=== PATIENT | female | born 1960 | race Caucasian/White ===

== ENCOUNTER 2017-05-17 07:21 | Day surgery (SDC) | payer MEDICAID ==
[2017-05-16 09:17] VITALS: BMI 28.3
[~2017-05-17 07:21] MED LIST: LACTATED RINGERS 1,000 ML IV SCH; LIDOCAINE 1% 20 ML VIAL (10MG/ML) FOR IV START INTRADERMA PRN
[2017-05-17 07:35] VITALS: RESP 16; TEMP 98.6
[2017-05-17] MEDS ORDERED: PROPOFOL 10 MG/ML 20 ML VIAL IV ONE (07:44)
[2017-05-17] MEDS ORDERED: MIDAZOLAM 2 MG/2 ML VIAL ONE (07:44)
[2017-05-17] MEDS ORDERED: LIDOCAINE 1% INJ 10MG/ML (20 ML MDV) ONE (07:44)
--- NOTE | 2017-05-17 08:10 | P.PCN ---
Date of Procedure: 05/17/17 Procedure(s) Performed: BRIEF HISTORY: Patient is a 56-year-old pleasant white female, scheduled for an elective colonoscopy as a part of screening for colorectal neoplasia. She has a family history of colon cancer diagnosed in her maternal uncle is a 60 and family history of colon polyps. PROCEDURE PERFORMED: Colonoscopy with snare polypectomy PREOPERATIVE DIAGNOSIS: Screening for colon cancer. IV sedation per Anesthesia. PROCEDURE: After informed consent was obtained, the patient, was brought into the endoscopy unit. IV sedation was administered by Anesthesia under continuous monitoring. Digital rectal examination was normal. Initially the Olympus CF- 160 flexible video colonoscope was then inserted in the rectum, gradually advanced into the cecum without any difficulty. Careful examination was performed as the scope was gradually being withdrawn. Ileocecal valve and the appendiceal orifice were visualized and appeared normal. Prep was excellent. Mucosa of the cecum, ascending colon, transverse colon, descending colon, sigmoid colon, and rectum appeared normal. There was a 1 cm polyp in the recto sigmoid colon at 20 cm from the anal verge, status post polypectomy. Scattered sigmoid diverticulosis seen. Retroflexion was performed in the rectum and no lesions were seen. The patient tolerated the procedure well. IMPRESSION: 1 cm pedunculated sigmoid polyp status post polypectomy Scattered sigmoid diverticulosis RECOMMENDATIONS: Findings of this examination were discussed with the patient as well as her family. She was advised to follow with the biopsy results. If the biopsy shows a tubular adenoma, she can have a repeat colonoscopy in 3 years.
[2017-05-17 08:11] VITALS: PULSE 67
[2017-05-17 08:34] VITALS: BP 150/76
== END 2017-05-17 09:17 | disposition home or self-care (01) ==
LOC: ORWHC2ENDO 07:21
PROVIDERS: ATTEND Internal Medicine Gastroenterology
DX: Z12.11 Encounter for screening for malignant neoplasm of colon (principal); D12.5 Benign neoplasm of sigmoid colon; K57.30 Diverticulosis of large intestine without perforation or abscess without bleeding; I48.0 Paroxysmal atrial fibrillation; Z79.890 Hormone replacement therapy; Z79.899 Other long term (current) drug therapy; Z80.0 Family history of malignant neoplasm of digestive organs; Z83.71 Family history of colonic polyps
CPT/HCPCS: 45385; 88305; J2250; J2001; J2704

== ENCOUNTER → 2017-07-02 | Outpatient (CLI) | payer MEDICAID ==
--- NOTE | 2017-07-03 08:53 | MR ---
EXAMINATION TYPE: MR knee LT wo con DATE OF EXAM: 07/02/2017 COMPARISON: Plain film dated 07/02/2017 HISTORY: Left Knee pain with Swelling x1 month TECHNIQUE: Multiplanar, multisequence imaging of the left knee is performed without IV contrast. FINDINGS: MEDIAL MENISCUS: Linear increased signal present at the posterior horn of the medial meniscus thought to extend to the articular surface. LATERAL MENISCUS: Anterior and posterior horns are intact without tear. CRUCIATE LIGAMENTS: The anterior and posterior cruciate ligaments are intact and unremarkable. COLLATERAL LIGAMENTS: The medial collateral ligament and lateral collateral ligament complex are inta ct and unremarkable. EXTENSOR MECHANISM: Visualized quadriceps and patellar tendons are intact. EFFUSION: Small suprapatellar joint effusion noted. POPLITEAL CYST: No popliteal/dumont cyst. TRICOMPARTMENT SPACES: Maintained medially and laterally, some joint space loss present at the patell ofemoral joint CARTILAGE: Grade III chondromalacia to grade 4 present posterior patella, grade III chondromalacia me dial femoral condyle. BONE MARROW SIGNAL: As described OTHER: Subcutaneous edema is noted. There is some increased signal at the level of the pes anserine complex at the level of the proximal tibia near its insertion, some local reactive marrow edema is pr esent at the level of the proximal tibia, difficult to exclude a possible partial tear or tendinosis. . IMPRESSION: Tendinosis or possible arterial tear at the insertion of the pes anserine complex. Suspect tear of th e posterior horn the medial meniscus. Osteoarthritis. Additional findings above.
== END | disposition home or self-care (01) ==
LOC: RADMRIMAIN 14:47
PROVIDERS: ATTEND Orthopaedic Surgery
DX: M25.562 Pain in left knee (principal)

== ENCOUNTER → 2017-07-08 | Outpatient (CLI) | payer MEDICAID ==
--- NOTE | 2017-07-08 09:08 | BD ---
EXAMINATION TYPE: MG DEXA axial skeleton. DATE OF EXAM: 07/08/2017 COMPARISON: 11.29.2014 DEXA bone scan CLINICAL HISTORY: 56 yr OLD FEMALE: ICD-10 CODE: M89.9 KNOWN OSTEOPENIA Height: 65 Weight: 184 FRAX RISK QUESTIONS: Alcohol (3 or more units per day): NO Family History (Parent hip fracture): NO Glucocorticoids (More than 3mos): NO (Ex: prednisone, prednisolone, methylprednisolone, dexamethasone, and hydrocortisone). History of Fracture in Adulthood: NO Secondary Osteoporosis: NO 1. Type 1 Diabetes: NO 2. Hyperthyroidism: NO 3. Menopause before 45: NO 4. Malnutrition: NO 5. Chronic liver disease: NO Rheumatoid Arthritis: NO Current Tobacco Use: NO RISK FACTORS HISTORY OF: Family History of Osteoporosis: YES, HER MOTHER, NO FX Active: YES Diet low in dairy products/other sources of calcium: NO Postmenopausal woman: YES AT AGE 52 Take estrogen and/or progesterone medications: ISAIAH-PRO How lon.5YRS Hyperparathyroidism: NO Adrenal Insufficiency: NO MEDICATIONS: Additional Medications: CLONIDINE, PRISTIQUE, Additional History: NOTHING TO NOTE EXAM MEASUREMENTS: Bone mineral densitometry was performed using the [employer] System. Bone mineral density as measured about the Lumbar spine is: ----- L1-L4(G/cm2): 0.992 T Score Values are as follows: ----- L1: -1.3 ----- L2: -2.7 ----- L3: -1.1 ----- L4: -1.4 ----- L1-L4: -1.6 Bone mineral density has: Decreased -1.9% since study of: 11.29.2014 Bone mineral density about the R hip (g/cm2): 0.996 Bone mineral density about the L hip (g/cm2): 0.975 T Score values are as follows: -----R Neck: -0.7 -----L Neck: -0.9 -----R Total: -0.1 -----L Total: -0.3 Bone mineral density has: Increased 5.0% since study of: 11.29.2014 FRAX: THERE IS A 5.4% CHANCE OF A MAJOR OSTEOPOROTIC FX AND A 0.2% OF HIP FX....PROBABILITY OF FX IN 10 YRS TIME IMPRESSION: Osteopenia (T Score between -2.5 and -1 as noted by T score values persists in the low back. There re main slightly increased risk of fracture and the patient may be considered for treatment. Re-Screen 2-5 years. NOTE: T-SCORE=SD OF THE YOUNG ADULT MEAN.
--- NOTE | 2017-07-09 08:02 | MM ---
Reason for exam: screening (asymptomatic). Last mammogram was performed 1 year and 4 months ago. History: Patient is postmenopausal. Cyst aspiration of the right breast. Taking estrogen for 1 year. Taking progesterone for 1 year. Physical Findings: A clinical breast exam by your physician is recommended on an annual basis and results should be correlated with mammographic findings. MG 3D Screening Mammo W/Cad Bilateral CC and MLO view(s) were taken. Prior study comparison: February 24, 2016, bilateral MG 3d screening mammo w/cad. November 29, 2014, bilateral MG screening mammo w CAD. The breast tissue is heterogeneously dense. This may lower the sensitivity of mammography. There is chronic nodularity bilaterally. There is no dominant lesion. No significant changes when compared with prior studies. ASSESSMENT: Benign, BI-RAD 2 RECOMMENDATION: Routine screening mammogram of both breasts in 1 year.
== END | disposition home or self-care (01) ==
LOC: RADMAMWWP 07:06
PROVIDERS: ATTEND Obstetrics & Gynecology
DX: Z12.31 Encounter for screening mammogram for malignant neoplasm of breast (principal); M85.88 Other specified disorders of bone density and structure, other site
CPT/HCPCS: 77063; 77067; 77080

== ENCOUNTER → 2017-07-31 | Outpatient (CLI) | payer MEDICAID ==
[2017-07-31 10:39] LABS: Basophils % (A) 1 %; Eosinophils # (A) 0.1 k/uL (0-0.7); Eosinophils % (A) 2 %; HCT 40.9 % (34.0-46.0); HGB 13.7 gm/dL (11.4-16.0); Lymphocytes # (A) 1.1 k/uL (1.0-4.8); Lymphocytes % (A) 22 %; MCH 29.9 pg (25.0-35.0); MCHC 33.4 g/dL (31.0-37.0); MCV 89.3 fL (80.0-100.0); Mean Platelet Volume 7.7; Monocytes # (A) 0.2 k/uL (0-1.0); Monocytes % (A) 4 %; Neutrophils # (A) 3.5 k/uL (1.3-7.7); Neutrophils % (A) 70 %; Platelet Count 235 k/uL (150-450); Poikilocytosis Slight; RBC 4.57 m/uL (3.80-5.40); RDW 15.3 % (11.5-15.5)
[2017-07-31 10:51] LABS: Potassium 4.1 mmol/L (3.5-5.1)
== END | disposition home or self-care (01) ==
LOC: LABPAT 10:14
PROVIDERS: ATTEND Orthopaedic Surgery
DX: Z01.812 Encounter for preprocedural laboratory examination (principal); M23.92 Unspecified internal derangement of left knee
CPT/HCPCS: 36415; 80051; 85025

== ENCOUNTER 2017-08-01 08:25 | Day surgery (SDC) | payer MEDICAID ==
[2017-07-29 12:28] VITALS: BMI 29.1
--- NOTE | 2017-07-31 20:57 | HP ---
HISTORY AND PHYSICAL DATE OF SURGERY: 08/01/2017 Justine Guevara is a 57-year-old patient seen with progressive left knee pain. Treatment options were discussed. She elected to proceed with left knee arthroscopy. Consent was obtained. PAST MEDICAL HISTORY: Noncontributory. PAST SURGICAL HISTORY: Cholecystectomy. DAILY MEDICATIONS: Clonidine. ALLERGIES: NONE. SOCIAL HISTORY: Patient denies tobacco use. PHYSICAL EVALUATION OF THE LEFT KNEE: Range of motion zero to 130 degrees. Mild effusion. Tenderness along the medial joint line. Positive medial Amado's. Crepitus with patellofemoral joint range of motion. Ligaments stable. Hip rotation without pain. Distal neurovascular examination. RADIOGRAPHS: Left knee radiographs revealed moderate osteoarthritis. An MRI left knee revealed chondromalacia, small joint effusion, medial meniscal tear. IMPRESSION: Internal derangement of the left knee with meniscal tear. PLAN: Left knee arthroscopy with partial meniscectomy and debridement. MMODL / IJN: [id number] /
[~2017-08-01 08:25] MED LIST changes: -LIDOCAINE 1% 20 ML VIAL (10MG/ML) FOR IV START INTRADERMA PRN; +MORPHINE SULFATE 4 MG/ML SYRINGE IV PRN; +ceFAZolin IN SWFI 2 GM/20 ML SYRINGE IVP ONE
[2017-08-01] MEDS ORDERED: LIDOCAINE 1% 20 ML VIAL (10MG/ML) FOR IV START INTRADERMA ONE (08:57)
[2017-08-01] MEDS ORDERED: ONDANSETRON 4 MG/2 ML VIAL IVP ONE (09:09)
[2017-08-01] MEDS ORDERED: fentaNYL (PF) 50 MCG/ML 2 ML AMP ONE (09:27)
[2017-08-01] MEDS ORDERED: PROPOFOL 10 MG/ML 20 ML VIAL IV ONE ×2 (09:27)
[2017-08-01] MEDS ORDERED: MIDAZOLAM 2 MG/2 ML VIAL ONE (09:27)
[2017-08-01] MEDS ORDERED: LIDOCAINE 1% INJ 10MG/ML (20 ML MDV) ONE (09:27)
[2017-08-01] MEDS ORDERED: KETOROLAC 30 MG/ML 1 ML VIAL ONE (09:27)
[2017-08-01] MEDS ORDERED: BUPIVACAINE (PF) 0.25% 30 ML VIAL SQ ONE (10:04)
[2017-08-01 10:18] VITALS: TEMP 97.1
--- NOTE | 2017-08-01 10:21 | P.OP ---
Date of Procedure: 08/01/17 Preoperative Diagnosis: Internal derangement left knee Postoperative Diagnosis: 1. Medial and lateral meniscal tears left knee 2. Grade 2/3 chondromalacia medial femoral condyle left knee 3. Grade 2/3 chondromalacia patella left knee 4. Reactive synovitis medial and suprapatellar compartments left knee Procedure(s) Performed: 1. Arthroscopic partial medial and lateral meniscectomy left knee 2. Arthroscopic chondroplasty medial femoral condyle left knee 3. Arthroscopic chondroplasty patella left knee 4. Arthroscopic partial synovectomy medial and suprapatellar compartments left knee Anesthesia: [place], local Surgeon: Ge Neves Estimated Blood Loss (ml): 8 Pathology: none sent Condition: stable Disposition: PACU Indications for Procedure: 57-year-old patient seen with progressive left knee pain. After having treatment options discussed, she elected to proceed with arthroscopy. Operative Findings: see description of procedure Description of Procedure: Patient was taken to the operative suite. Patient underwent a general anesthetic by the department of anesthesia. Patient was given preoperative antibiotics. The left lower extremity was placed in a well-padded arthroscopic leg chau. The left leg was prepped and draped in the normal sterile orthopedic fashion. A lateral parapatellar and suprapatellar incision was made. Trochars were inserted. Arthroscopy was initiated. Suprapatellar pouch revealed diffuse thick reactive synovitis. The patellofemoral joint appeared to articulate congruently. There was grade 2/3 chondromalacia patella left knee with osteochondral tears. The scope was guided into the medial gutter. Loose bodies or plica were identified. The scope was then guided into the medial compartment. A medial parapatellar incision was made. Trocar inserted followed by probe. There was a complex tear posterior horn medial meniscus. There were grade 2-3 chondromalacia changes of the medial femoral condyle with peripheral osteochondral tears present. There was reactive synovitis anteriorly. I performed a partial medial meniscectomy down to stable tissue. I performed a chondroplasty of the medial femoral condyle down to stable tissue. I performed a partial synovectomy. The residual meniscus was stable. The residual osteochondral surface of the medial femoral condyle was stable. There was good decompression of the reactive synovitis. Scope and probe were then guided into the intercondylar notch. Cruciates were identified, probed and found to be stable. The scope and probe were then guided into lateral compartment. Some superficial tearing of the midbody lateral meniscus. Grade 1 chondromalacia changes of the tibial plateau. No reactive synovitis. I performed a partial lateral meniscectomy down to stable tissue. The residual meniscus was stable. The scope was in guided back into the suprapatellar compartment. I introduced a motorized shaver into the super patellar compartment. I debrided some piecemeal fragments of meniscus I encountered. I performed a chondroplasty of the patella down to stable tissue. I performed a partial synovectomy. The residual osteochondral surface of the patella was stable. I took one more look on the entire knee, no residual debris. Instruments were now removed from the joint. The joint was infiltrated with .25 % Marcaine. Steri-Strips were applied to the portal sites. Sterile dressings were applied. The patient was placed into a ELENA hose. No tourniquet was utilized. The patient was awakened, transferred to a bed and taken to recovery stable satisfactory condition.
[2017-08-01 10:23] VITALS: RESP 16
[2017-08-01] MEDS: fentaNYL (PF) 50 MCG/ML 2 ML AMP IVP ONE ×2 (10:30→10:42)
[2017-08-01] MEDS ORDERED: HYDROcodone/APAP 5-325MG 1 EACH TAB PO ONE (12:00)
[2017-08-01 12:14] VITALS: BP 134/63; PULSE 83
== END 2017-08-01 12:44 | disposition home or self-care (01) ==
LOC: OR 08:25
PROVIDERS: ATTEND Orthopaedic Surgery
DX: S83.242A Other tear of medial meniscus, current injury, left knee, initial encounter (principal); S83.282A Other tear of lateral meniscus, current injury, left knee, initial encounter; X58.XXXA Exposure to other specified factors, initial encounter; M22.42 Chondromalacia patellae, left knee; M65.862 Other synovitis and tenosynovitis, left lower leg; I10 Essential (primary) hypertension; I48.91 Unspecified atrial fibrillation; Z79.899 Other long term (current) drug therapy
CPT/HCPCS: 29880; J2250; J2405; J2001; J3010; J1885; J2704; J0690

== ENCOUNTER → 2019-01-19 | Outpatient (CLI) | payer MEDICAID ==
--- NOTE | 2019-01-19 22:55 | MR ---
EXAMINATION TYPE: MR knee RT wo con DATE OF EXAM: 01/19/2019 COMPARISON: Outside knee x-ray November 18, 2018 HISTORY: Pain in right knee per order. Additional symptoms of locking and swelling for 1 year per pat ient. TECHNIQUE: Multiplanar, multisequence images of the knee is performed without IV contrast. FINDINGS: MEDIAL MENISCUS: Anterior horn is intact without tear. Oblique signal posterior horn extends to infer ior articular surface sagittal image 8 LATERAL MENISCUS: Anterior and posterior horns are intact without tear. CRUCIATE LIGAMENTS: The anterior and posterior cruciate ligaments are intact and unremarkable. COLLATERAL LIGAMENTS: The medial collateral ligament and lateral collateral ligament complex are inta ct. Increased fluid signal surrounds both the medial collateral ligament and lateral collateral ligam ent complex. EXTENSOR MECHANISM: Visualized quadriceps and patellar tendons are intact. EFFUSION: There is a large suprapatellar joint effusion. POPLITEAL CYST: Ill-defined fluid at level of popliteal fossa noted. TRICOMPARTMENT SPACES: Moderate narrowing medial tibiofemoral and patellofemoral compartments with mi ld spurring. CARTILAGE: Significant chondromalacia patella with near full-thickness and full-thickness loss along inferior half of posterior patellar pole. Thinning of articular cartilage medial tibiofemoral compart ment. BONE MARROW SIGNAL: Heterogeneity consistent with red marrow reconversion distal femoral metadiaphysi s. OTHER: Increased fluid signal superficial infrapatellar level noted. Correlate for bursitis. IMPRESSION: 1. Full-thickness tear posterior horn of medial meniscus. 2. Mild MCL and lateral collateral ligament complex sprain injuries. 3. Large suprapatellar joint effusion. 4. Suspect leaking Damon's cyst. 5. Moderate degenerative changes patellofemoral and medial tibiofemoral compartments.
== END | disposition home or self-care (01) ==
LOC: RADMRIMAIN 06:47
PROVIDERS: ATTEND Orthopaedic Surgery
DX: S83.241A Other tear of medial meniscus, current injury, right knee, initial encounter (principal); S83.421A Sprain of lateral collateral ligament of right knee, initial encounter; S83.411A Sprain of medial collateral ligament of right knee, initial encounter; M17.11 Unilateral primary osteoarthritis, right knee

== ENCOUNTER → 2019-03-09 | Outpatient (CLI) | payer MEDICAID ==
[2019-03-09 12:07] LABS: Potassium 4.8 mmol/L (3.5-5.1)
[2019-03-09 14:04] LABS: Basophils % (A) 1 %; Eosinophils # (A) 0.1 k/uL (0-0.7); Eosinophils % (A) 2 %; HCT 38.7 % (34.0-46.0); HGB 13.2 gm/dL (11.4-16.0); Lymphocytes # (A) 1.5 k/uL (1.0-4.8); Lymphocytes % (A) 25 %; MCH 30.5 pg (25.0-35.0); MCV 89.8 fL (80.0-100.0); Monocytes # (A) 0.3 k/uL (0-1.0); Monocytes % (A) 4 %; Neutrophils # (A) 4.2 k/uL (1.3-7.7); Neutrophils % (A) 67 %; Platelet Count 227 k/uL (150-450); Poikilocytosis Slight; RBC 4.32 m/uL (3.80-5.40); RDW 15.5 % (11.5-15.5); WBC 6.2 k/uL (3.8-10.6)
== END ==
LOC: LABPAT 10:10
PROVIDERS: ATTEND Orthopaedic Surgery
DX: Z01.818 Encounter for other preprocedural examination (principal); Z01.812 Encounter for preprocedural laboratory examination; M23.91 Unspecified internal derangement of right knee
CPT/HCPCS: 36415; 80051; 85025; 93005

== ENCOUNTER 2019-03-11 08:55 | Day surgery (SDC) | payer MEDICAID ==
[2019-03-10 09:17] VITALS: BMI 29.7
--- NOTE | 2019-03-10 09:56 | HP ---
HISTORY AND PHYSICAL DATE OF SURGERY: 03/11/2019 Sandrita Guevara is a 58-year-old patient seen with progressive right knee pain. We discussed options for treatment. She elected to proceed with right knee arthroscopy. Consent regarding the procedure was obtained. PAST MEDICAL HISTORY: Noncontributory. PAST SURGICAL HISTORY: Cholecystectomy, left knee arthroscopy. MEDICATIONS: Prempro. ALLERGIES: None. SOCIAL HISTORY: She denies tobacco use. PHYSICAL EVALUATION OF THE RIGHT KNEE: Range of motion 0 to 130. Moderate effusion. Tenderness medial joint line. Positive medial Amado's. Ligaments stable. Hip rotation without pain. Distal neurovascular exam intact. RADIOGRAPHS OF THE RIGHT KNEE: Reveal moderate osteoarthritic changes. An MRI of the right knee revealed medial meniscal tear, osteoarthritic changes. IMPRESSION: Internal derangement, right knee with medial meniscal tear. PLAN: Right knee arthroscopy with partial meniscectomy and debridement. MMODL / IJN: [id number] /
[~2019-03-11 08:55] MED LIST changes: +DEXAMETHASONE SOD PHOSPHATE 10 MG/ML 1 ML VIAL IV ONE; +KETOROLAC 30 MG/ML 1 ML VIAL IVP SCH; -LACTATED RINGERS 1,000 ML IV SCH; +LIDOCAINE 1% 20 ML VIAL (10MG/ML) FOR IV START INTRADERMA PRN; -MORPHINE SULFATE 4 MG/ML SYRINGE IV PRN; +ONDANSETRON 4 MG/2 ML VIAL IVP ONE; +ONDANSETRON 4 MG/2 ML VIAL IVP PRN; +SCOPOLAMINE 1.5MG/72HR PATCH TRANSDERM ONE; -ceFAZolin IN SWFI 2 GM/20 ML SYRINGE IVP ONE
[2019-03-11] MEDS: LACTATED RINGERS 1,000 ML IV SCH ×3 (09:03→11:40)
[2019-03-11 09:09] VITALS: RESP 16; TEMP 97.2
[2019-03-11] MEDS ORDERED: MIDAZOLAM 2 MG/2 ML VIAL ONE (09:44)
[2019-03-11] MEDS ORDERED: hydrALAZINE HCL 20 MG/ML 1 ML VIAL ONE (09:44)
[2019-03-11] MEDS ORDERED: PROPOFOL 10 MG/ML 20 ML VIAL IV ONE (09:44)
[2019-03-11] MEDS ORDERED: LIDOCAINE 1% INJ 10MG/ML (20 ML MDV) ONE (09:44)
[2019-03-11] MEDS ORDERED: fentaNYL (PF) 50 MCG/ML 2 ML AMP ONE (09:44)
[2019-03-11] MEDS ORDERED: KETOROLAC 30 MG/ML 1 ML VIAL ONE (09:44)
[2019-03-11] MEDS ORDERED: HYDROmorphone (PF) 1 MG/ML ONE (09:44)
[2019-03-11] MEDS ORDERED: SUCCINYLCHOLINE CHLORIDE 100 MG/5 ML SYR IV ONE (09:44)
[2019-03-11] MEDS ORDERED: BUPIVACAINE (PF) 0.25% 30 ML VIAL SQ ONE (10:09)
--- NOTE | 2019-03-11 10:36 | P.OP ---
Date of Procedure: 03/11/19 Preoperative Diagnosis: Internal derangement right knee Postoperative Diagnosis: 1. Tear medial meniscus right knee 2. Grade 2/3 chondromalacia medial femoral condyle right knee 3. Grade 2/3 chondromalacia patella right knee 4. Reactive synovitis medial, lateral and suprapatellar compartments right knee Procedure(s) Performed: 1. Arthroscopic partial medial meniscectomy right knee 2. Arthroscopic chondroplasty medial femoral condyle right knee 3. Arthroscopic chondroplasty patella right knee 4. Arthroscopic partial synovectomy medial, lateral and suprapatellar compartments right knee Anesthesia: [place], local Surgeon: Ge Neves Estimated Blood Loss (ml): 5 Pathology: none sent Condition: stable Disposition: PACU Indications for Procedure: 58-year-old patient seen with progressive right knee pain. After having treatment options discussed, she elected to proceed with arthroscopy. Operative Findings: See description of procedure Description of Procedure: Patient was taken to the operative suite. Patient underwent a general anesthetic by the department of anesthesia. Patient was given preoperative antibiotics. The right lower extremity was placed in a well-padded arthroscopic leg chau. The right leg was prepped and draped in the normal sterile orthopedic fashion. A lateral parapatellar and suprapatellar incision was made. Trochars were inserted. Arthroscopy was initiated. Suprapatellar pouch revealed diffuse thick reactive synovitis. The patellofemoral joint appeared to articulate congruently. There was grade 2/3 chondromalacia of the patella with some small osteochondral tears present. The scope was guided into the medial gutter. No loose bodies or plica were identified. The scope was then guided into the medial compartment. A medial parapatellar incision was made. Trocar inserted followed by probe. There was a complex tear involving the mid body and posterior horn medial meniscus. There were grade 2/3 chondromalacia changes of the medial femoral condyle with some osteochondral tears present. There was reactive synovitis anteriorly. I performed a partial medial meniscectomy getting down to stable tissue. I performed a chondroplasty of the medial femoral condyle getting down to stable osteochondral tissue. I performed a partial synovectomy decompressing the reactive synovitis anteriorly. The residual meniscus was probed and found to be stable. The residual osteochondral surface was stable. There was good decompression with synovitis. Scope and probe were then guided into the intercondylar notch. Cruciates were identified, probed and found to be stable. The scope and probe were then guided into lateral compartment. There was some mild fraying noted of the midbody lateral meniscus. There was no significant chondromalacia involving lateral compartment. There was some reactive synovitis anteriorly. I debrided that meniscal fraying with a motorized shaver and I performed a partial synovectomy decompressing reactive synovitis anteriorly. There was good decompression of the synovitis. The scope was in guided back into the suprapatellar compartment. I introduced a motorized shaver into the suprapatellar compartment. I debrided piecemeal fragments of meniscus I encountered. I performed a chondroplasty of the patella getting down to stable osteochondral tissue. I performed a partial synovectomy decompressing the reactive synovitis in suprapatellar compartment. The residual osteochondral surface of patella was stable. There was good decompression of the synovitis. I took one more look around the entire knee, no residual debris. Instruments were now removed from the joint. The joint was infiltrated with .25% Marcaine. Steri-Strips were applied to the portal sites. Sterile dressings were applied. The patient was placed into a ELENA hose. No tourniquet was utilized. The patient was awakened, transferred to a bed and taken to recovery stable satisfactory condition.
[2019-03-11] MEDS: HYDROmorphone 0.5 MG/0.5 ML SYRINGE IVP PRN ×2 (11:20→11:25)
[2019-03-11] MEDS ORDERED: HYDROcodone/APAP 5-325MG 1 EACH TAB PO ONE (12:43)
[2019-03-11 13:06] VITALS: BP 127/72; PULSE 96
== END 2019-03-11 13:24 | disposition home or self-care (01) ==
LOC: OR 08:55
PROVIDERS: ATTEND Orthopaedic Surgery
DX: S83.231A Complex tear of medial meniscus, current injury, right knee, initial encounter (principal); M22.41 Chondromalacia patellae, right knee; M65.861 Other synovitis and tenosynovitis, right lower leg; S83.281A Other tear of lateral meniscus, current injury, right knee, initial encounter; M17.11 Unilateral primary osteoarthritis, right knee; R94.31 Abnormal electrocardiogram [ECG] [EKG]; I10 Essential (primary) hypertension; Z79.818 Long term (current) use of other agents affecting estrogen receptors and estrogen levels; Z79.899 Other long term (current) drug therapy; Z87.891 Personal history of nicotine dependence; Z90.49 Acquired absence of other specified parts of digestive tract; Z86.79 Personal history of other diseases of the circulatory system; Z98.890 Other specified postprocedural states; X58.XXXA Exposure to other specified factors, initial encounter
CPT/HCPCS: 29881; 29876; J2250; J0360; J1100; J0690; J2405; J2001; J3010; J1885; J1170 ×2; J0330; J2704

== ENCOUNTER → 2020-02-24 | Outpatient (CLI) | payer MEDICAID ==
[2020-02-24 11:45] LABS: Basophils % (A) 1 %; Eosinophils # (A) 0.1 k/uL (0-0.7); Eosinophils % (A) 3 %; HCT 39.9 % (34.0-46.0); HGB 13.5 gm/dL (11.4-16.0); Lymphocytes # (A) 1.3 k/uL (1.0-4.8); Lymphocytes % (A) 25 %; MCH 30.3 pg (25.0-35.0); MCHC 33.8 g/dL (31.0-37.0); MCV 89.5 fL (80.0-100.0); Monocytes # (A) 0.2 k/uL (0-1.0); Monocytes % (A) 4 %; Neutrophils # (A) 3.4 k/uL (1.3-7.7); Neutrophils % (A) 66 %; Platelet Count 194 k/uL (150-450); Poikilocytosis Slight; RBC 4.46 m/uL (3.80-5.40); RDW 15.2 % (11.5-15.5); WBC 5.2 k/uL (3.8-10.6)
[2020-02-24 18:33] LABS: African American GFR (CKD) 117.3 (60.0-200.0); Albumin 4.4 g/dL (3.80-4.90); Albumin/Globulin Ratio 3.14 (1.60-3.17); Anion Gap 13.4 mmol/L (4.00-12.00); Calcium 9.1 mg/dL (8.7-10.3); Carbon Dioxide 23.6 mmol/L (21.6-31.8); Chol/HDL Ratio 3.74; Globulin 1.4 g/dL (1.6-3.3); LDL Cholesterol,Calculated 143.2 mg/dL (0.0-131.0); Non-African American GFR(CKD) 101.2 (60.0-200.0); Potassium 4.8 mmol/L (3.5-5.5); Total Bilirubin 1.1 mg/dL (0.2-1.2); Total Protein 5.8 g/dL (6.2-8.2); VLDL Calculation 26.8 mg/dL (5.00-40.00)
== END | disposition home or self-care (01) ==
LOC: LABWHC1 08:52
PROVIDERS: ATTEND Family Medicine
DX: Z13.220 Encounter for screening for lipoid disorders (principal); Z13.29 Encounter for screening for other suspected endocrine disorder; R07.9 Chest pain, unspecified
CPT/HCPCS: 36415; 80053; 80061; 82306; 84443; 85025

== ENCOUNTER → 2020-09-09 | Day surgery (SDC) | payer MEDICAID ==
[2020-09-08 12:39] VITALS: BMI 32.4
[~2020-09-09] MED LIST changes: -DEXAMETHASONE SOD PHOSPHATE 10 MG/ML 1 ML VIAL IV ONE; -KETOROLAC 30 MG/ML 1 ML VIAL IVP SCH; +LACTATED RINGERS 1,000 ML IV SCH; +LIDOCAINE 1% (10MG/ML) FOR IV START SQ ONE; -LIDOCAINE 1% 20 ML VIAL (10MG/ML) FOR IV START INTRADERMA PRN; +MIDAZOLAM 2 MG/2 ML VIAL ONE; -ONDANSETRON 4 MG/2 ML VIAL IVP PRN; +ONDANSETRON 4 MG/2 ML VIAL ONE; +PROPOFOL 10 MG/ML 20 ML VIAL IV ONE; -SCOPOLAMINE 1.5MG/72HR PATCH TRANSDERM ONE; +fentaNYL (PF) 50 MCG/ML 2 ML AMP ONE
[2020-09-09 08:54] VITALS: RESP 16; TEMP 98
--- NOTE | 2020-09-09 09:37 | P.PCN ---
Date of Procedure: 09/09/20 Procedure(s) Performed: BRIEF HISTORY: Patient is a [age]-year-old pleasant white female scheduled for an elective colonoscopy as a part of evaluation of prior history of colon polyps. Last colonoscopy was 3 years ago and was noted to have an adenoma. PROCEDURE PERFORMED: Colonoscopy. PREOPERATIVE DIAGNOSIS: History of colon polyps. IV sedation per Anesthesia. PROCEDURE: After informed consent was obtained, the patient, was brought into the endoscopy unit. IV sedation was administered by Anesthesia under continuous monitoring. Digital rectal examination was normal. Initially the Olympus CF-160 flexible video colonoscope was then inserted in the rectum, gradually advanced into the cecum without any difficulty. Careful examination was performed as the scope was gradually being withdrawn. Ileocecal valve and the appendiceal orifice were visualized and appeared normal. Prep was excellent. Mucosa of the cecum, ascending colon, transverse colon, descending colon, sigmoid colon, and rectum appeared normal. Scattered diverticulosis seen. Retroflexion was performed in the rectum and no lesions were seen. The patient tolerated the procedure well. IMPRESSION: Normal-appearing colon from rectum to cecum with no evidence of colorectal neoplasia . Scattered diverticulosis. RECOMMENDATIONS: Findings of this examination were discussed with the patient as well as her family. She was advised to have a repeat surveillance colonoscopy in 5 years from now because of the prior history of colon polyps.
[2020-09-09 10:27] VITALS: BP 137/73; PULSE 72
== END ==
LOC: ORWHC2ENDO 08:36
PROVIDERS: ATTEND Internal Medicine Gastroenterology
DX: Z12.11 Encounter for screening for malignant neoplasm of colon (principal); K57.30 Diverticulosis of large intestine without perforation or abscess without bleeding; Z86.010 Personal history of colon polyps; Z79.899 Other long term (current) drug therapy; I10 Essential (primary) hypertension; Z79.1 Long term (current) use of non-steroidal anti-inflammatories (NSAID)
CPT/HCPCS: J2250; J2405; J3010; J2704; G0105; 45385

== ENCOUNTER → 2021-06-05 | Outpatient (CLI) | payer MEDICAID, OTHER | END | disposition home or self-care (01) | LOC: LABWHC1 16:04 | PROVIDERS: ATTEND Emergency Medicine | DX: U07.1 COVID-19 (principal) | CPT/HCPCS: 87635 ==

== ENCOUNTER 2021-06-30 09:10 | Emergency (ER) | payer OTHER, MEDICAID ==
[2021-06-30] MEDS ORDERED: IBUPROFEN 600 MG TAB PO STA (09:11)
[2021-06-30 09:24] VITALS: TEMP 97.7
--- NOTE | 2021-06-30 09:47 | XR ---
Cervical spine HISTORY: Trauma and pain 5 views of cervical spine No comparisons Cervical vertebral bodies show preserved height. Bone mineralization may be slightly reduced. Minimal retrolisthesis grade 1 C3-4, C4-5. There is facet arthropathy change. Loss of disc height is present at C5-6, C6-7 and C4-5 with associated spondylosis. Prevertebral soft tissues are normal. Oblique im ages show some foraminal encroachment on the left at C4-5 and possibly on the right although obliquit y is somewhat limited on the right. IMPRESSION: Degenerative disc disease and facet arthropathy. No acute fracture or subluxation is evid ent.
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
[2021-06-30 10:00] VITALS: BP 124/73; PULSE 77; RESP 20
== END 2021-06-30 10:00 | disposition home or self-care (01) ==
LOC: EC 09:10
DX: S16.1XXA Strain of muscle, fascia and tendon at neck level, initial encounter (principal); I48.91 Unspecified atrial fibrillation; I10 Essential (primary) hypertension; Z87.891 Personal history of nicotine dependence; Z72.89 Other problems related to lifestyle; V89.2XXA Person injured in unspecified motor-vehicle accident, traffic, initial encounter
CPT/HCPCS: 72050; 99283

== ENCOUNTER → 2021-08-18 | Outpatient (CLI) | payer MEDICAID ==
[2021-08-19 01:13] LABS: Albumin 4.6 g/dL (3.8-4.9); Albumin/Globulin Ratio 2.89 (1.60-3.17); Bilirubin, Conjugated 0.34 mg/dL (0.20-0.40); Bilirubin,Unconjugated 1.24 mg/dL (0.20-1.00); Globulin 1.6 g/dL (1.6-3.3); Total Bilirubin 1.6 mg/dL (0.30-1.20); Total Protein 6.2 g/dL (6.2-8.2)
== END | disposition home or self-care (01) ==
LOC: LABWHC1 14:53
PROVIDERS: ATTEND Student in an Organized Health Care Education/Training Program
DX: D22.4 Melanocytic nevi of scalp and neck (principal); D22.5 Melanocytic nevi of trunk; L82.1 Other seborrheic keratosis; L57.0 Actinic keratosis; L81.4 Other melanin hyperpigmentation; L30.9 Dermatitis, unspecified; L81.5 Leukoderma, not elsewhere classified; B35.1 Tinea unguium
CPT/HCPCS: 36415; 80076

== ENCOUNTER → 2022-05-07 | Outpatient (CLI) | payer MEDICAID ==
[2022-05-07 10:53] LABS: ALT 28 U/L (8-44); AST 26 U/L (13-35); African American GFR (CKD) 109.9 (60.0-200.0); Albumin 4.2 g/dL (3.8-4.9); Albumin/Globulin Ratio 2.21 (1.60-3.17); Alkaline Phosphatase 60 U/L (41-126); BUN/Creat Ratio 16.71 Ratio (12.00-20.00); Blood Urea Nitrogen 11.7 mg/dL (9.0-27.0); Calcium 9.1 mg/dL (8.7-10.3); Carbon Dioxide 26.3 mmol/L (20.0-27.5); Chloride 106 mmol/L (96-109); Globulin 1.9 g/dL (1.6-3.3); Glucose 104 mg/dL (70-110); LDL Cholesterol,Calculated 96.1 mg/dL (0.0-131.0); Non-African American GFR(CKD) 94.8 (60.0-200.0); Potassium 4.7 mmol/L (3.5-5.5); Sodium 140 mmol/L (135-145); Total Protein 6.1 g/dL (6.2-8.2)
[2022-05-07 10:54] LABS: Basophils # (A) 0.02 X 10*3/uL (0.00-0.10); Basophils % (A) 0.6 %; Eosinophils # (A) 0.11 X 10*3/uL (0.04-0.35); Eosinophils % (A) 3.1 %; HGB 12.2 g/dL (12.0-15.0); Immature Grans, Automated 0.6 %; Lymphocytes # (A) 0.48 X 10*3/uL (0.90-5.00); Lymphocytes % (A) 13.7 %; MCH 31.3 pg (27.0-32.0); MCHC 33.9 g/dL (32.0-37.0); MCV 92.3 fL (80.0-97.0); Mean Platelet Volume 10.6 fL (9.5-12.2); Monocytes # (A) 0.28 X 10*3/uL (0.20-1.00); NRBC Per 100 WBC 0 /100 WBCS (0.0-0.0); Neutrophils # (A) 2.59 X 10*3/uL (1.80-7.70); Platelet Count 145 X 10*3/uL (140-440); RDW 14.6 % (11.5-14.5)
== END | disposition home or self-care (01) ==
LOC: LABWHC1 08:10
PROVIDERS: ATTEND Family Medicine
DX: Z13.220 Encounter for screening for lipoid disorders (principal); Z13.29 Encounter for screening for other suspected endocrine disorder
CPT/HCPCS: 36415; 80053; 80061; 84443; 85025

== ENCOUNTER → 2022-05-14 | Outpatient (CLI) | payer MEDICAID ==
[2022-05-14 09:51] LABS: C Reactive Protein 0.6 mg/dL (<1.0)
[2022-05-14 09:51] LABS: ALT 24 U/L (4-34); AST 27 U/L (14-36); African American GFR (CKD) >90 (>60 ml/min/1.73 sqM); Albumin/Globulin Ratio 1.9; Alkaline Phosphatase 65 U/L (38-126); Anion Gap 7 mmol/L; Blood Urea Nitrogen 12 mg/dL (7-17); Calcium 9.1 mg/dL (8.4-10.2); Carbon Dioxide 29 mmol/L (22-30); Chloride 105 mmol/L (98-107); GGT 37 U/L (12-43); Globulin 2.1 g/dL; Glucose 95 mg/dL (74-99); Non-African American GFR(CKD) 88 (>60 ml/min/1.73 sqM); Potassium 4.2 mmol/L (3.5-5.1); Sodium 141 mmol/L (137-145); Total Bilirubin 2.8 mg/dL (0.2-1.3); Total Protein 6.1 g/dL (6.3-8.2)
[2022-05-14 10:10] LABS: Basophils % (A) 0 %; Eosinophils # (A) 0.1 k/uL (0-0.7); Eosinophils % (A) 3 %; HGB 12.9 gm/dL (11.4-16.0); Hyperchromasia Slight; Lymphocytes % (A) 31 %; MCH 32.7 pg (25.0-35.0); MCHC 36.8 g/dL (31.0-37.0); MCV 88.9 fL (80.0-100.0); Mean Platelet Volume 8.6; Monocytes # (A) 0.2 k/uL (0-1.0); Monocytes % (A) 5 %; Neutrophils # (A) 1.9 k/uL (1.3-7.7); Neutrophils % (A) 59 %; Platelet Count 197 k/uL (150-450); Poikilocytosis Moderate; RBC 3.94 m/uL (3.80-5.40); RDW 14.7 % (11.5-15.5); WBC 3.2 k/uL (3.8-10.6)
[2022-05-14 15:40] LABS: Hepatitis A Antibody IgM Nonreactive (Nonreactive); Hepatitis B Core IgM Nonreactive (Nonreactive); Hepatitis B Surface Antigen Nonreactive (Nonreactive); Hepatitis C IgG Antibody Nonreactive (Nonreactive)
== END | disposition home or self-care (01) ==
LOC: LABWHC1 08:19
PROVIDERS: ATTEND Internal Medicine Infectious Disease
DX: R17 Unspecified jaundice (principal); R50.9 Fever, unspecified
CPT/HCPCS: 36415; 80053; 80074; 82150; 82977; 83690; 85025; 85652; 86140; 86665

== ENCOUNTER → 2022-05-18 | Outpatient (CLI) | payer MEDICAID ==
--- NOTE | 2022-05-18 08:33 | MM ---
Reason for Exam: Clinical finding. Last mammogram was performed 4 year(s) and 10 month(s) ago. Indicated Problems: Lump or thickening of the right side (size 20) for 2 Week(s). Patient History: Menarche at age 15. Patient has no children. Postmenopausal. Currently using Estrogen, for 1 year. Currently using Progesterone, for 1 year. Benign Cyst Aspiration on the right side. Risk Values: Rut 5 year model risk: 1.5%. NCI Lifetime model risk: 8.3%. Prior Study Comparison: 11/25/2013 Bilateral Screening Mammogram, [facility]. 11/29/2014 Bilateral Screening Mammogram, [facility]. 02/24/2016 Bilateral Screening Mammogram, [facility]. 07/08/2017 Bilateral Screening Mammogram, [facility]. Tissue Density: The breast tissue is extremely dense which could obscure a lesion on mammography. Findings: Analyzed By CAD. There is a 1.4 cm round circumscribed mass at site of distortion at site of prior biopsy right breast upper portion middle depth approximately 6 cm distance from nipple corresponding to area of palpable abnormality. Further workup advised. Overall Assessment: Incomplete: need additional imaging evaluation, BI-RAD 0 Management: Diagnostic Breast Ultrasound of the right breast. Targeted ultrasound right breast. Electronically signed and approved by: Isaac Kohler M.D.
--- NOTE | 2022-05-18 08:57 | USB ---
Reason for Exam: Clinical finding. Patient History: Menarche at age 15. Patient has no children. Postmenopausal. Currently using Estrogen, for 1 year. Currently using Progesterone, for 1 year. Benign Cyst Aspiration on the right side. Risk Values: Rut 5 year model risk: 1.5%. NCI Lifetime model risk: 8.3%. Technique: Method: Targeted. Prior Study Comparison: 11/29/2014 Bilateral Screening Mammogram, [facility]. 02/24/2016 Bilateral Screening Mammogram, [facility]. 07/08/2017 Bilateral Screening Mammogram, [facility]. Findings: The upper inner quadrant of the right breast, the axilla of the right breast and the retroareolar of the right breast were scanned. Target ultrasound shows 1.3 x 1.1 x 1.2 cm round hypoechoic to anechoic lesion with suggestion of increased through transmission and no vascularity likely reflecting thin-walled cyst. Overall Assessment: Probably benign, BI-RAD 3 Management: Diagnostic Breast Ultrasound of the right breast in 6 months. Precautionary ultrasound follow-up in 6 months time to reassess. Case discussed with patient. Instructed to return if lesion is felt to enlarge or become painful. Patient is agreeable with above findings and recommendation. Results were given to the patient verbally at the time of exam. Electronically signed and approved by: Isaac Kohler M.D.
== END | disposition home or self-care (01) ==
LOC: RADMAMWWP 07:35
PROVIDERS: ATTEND Family Medicine
DX: N63.10 Unspecified lump in the right breast, unspecified quadrant (principal); N63.20 Unspecified lump in the left breast, unspecified quadrant; N60.01 Solitary cyst of right breast; Z78.0 Asymptomatic menopausal state
CPT/HCPCS: 77062; 77066

== ENCOUNTER → 2023-07-12 | Outpatient (CLI) | payer MEDICAID ==
--- NOTE | 2023-07-12 07:51 | USB ---
Reason for Exam: Follow-up at short interval from prior study. Patient History: Menarche at age 15. Patient has no children. Postmenopausal. Currently using Estrogen, for 1 year. Currently using Progesterone, for 1 year. Benign Cyst Aspiration on the right side. Risk Values: Rut 5 year model risk: 1.6%. NCI Lifetime model risk: 8.1%. Technique: Method: Targeted. Prior Study Comparison: 02/24/2016 Bilateral Screening Mammogram, [facility]. 07/08/2017 Bilateral Screening Mammogram, [facility]. 05/18/2022 Bilateral MG 3D diag mammo w/cad RE, [facility]. Findings: The upper inner quadrant of the right breast, the axilla of the right breast and the retroareolar of the right breast were scanned. Stable cyst with internal echoes at the right 12:00 position 5 cm from the nipple measuring 1 x 1 cm no solid masses are detected.. Overall Assessment: Benign, BI-RAD 2 Management: Screening Mammogram of both breasts in 1 year. A clinical breast exam by your physician is recommended on an annual basis and results should be correlated with mammographic findings. This exam should not preclude additional follow-up of suspicious palpable abnormalities. Results were given to the patient verbally at the time of exam. Electronically signed and approved by: Alejandro Loya M.D. Radiologis
--- NOTE | 2023-07-12 07:51 | MM ---
Reason for Exam: Follow-up at short interval from prior study. Last mammogram was performed 1 year(s) and 2 month(s) ago. Patient History: Menarche at age 15. Patient has no children. Postmenopausal. Currently using Estrogen, for 1 year. Currently using Progesterone, for 1 year. Benign Cyst Aspiration on the right side. Risk Values: Rut 5 year model risk: 1.6%. NCI Lifetime model risk: 8.1%. Tissue Density: The breast tissue is heterogeneously dense. This may lower the sensitivity of mammography. Findings: Analyzed By CAD. Nodular density upper and slightly inner right breast persists. Ultrasound is advised. No nodule seen. No suspicious calcifications. Overall Assessment: Incomplete: need additional imaging evaluation, BI-RAD 0 Management: Diagnostic Breast Ultrasound of the right breast. . Results were given to the patient verbally at the time of exam. Patient should continue monthly self-breast exams. A clinical breast exam by your physician is recommended on an annual basis. This exam should not preclude additional follow-up of suspicious palpable abnormalities. Note on Rut scores and lifetime risk: 1. A Rut score greater than 3% is considered moderate risk. If this is the case, consider specialist referral to assess eligibility for a risk reducing agent. 2. If overall lifetime risk for the development of breast cancer is 20% or higher, the patient may qualify for future screening with alternating mammogram and breast MRI. Electronically signed and approved by: Alejandro Loya M.D. Radiologis
--- NOTE | 2023-07-12 09:47 | BD ---
EXAMINATION TYPE: Axial Bone Density DATE OF EXAM: 07/12/2023 CLINICAL HISTORY: 62 years old Female. ICD-10 CODE: M85.88 BONE DISORDER E55.9 VIT D DEF, M85.9 Height: 65 Weight: 181 FRAX RISK QUESTIONS: Alcohol (3 or more units per day): no Family History (Parent hip fracture): yes 3. Menopause before 45: no, at 52 yrs old RISK FACTORS HISTORY OF: nothing to note here MEDICATIONS: vit d, Pristiq, EXAM MEASUREMENTS: Bone mineral densitometry was performed using the [employer] System. Bone mineral density as measured about the Lumbar spine is: ----- L1-L4(G/cm2): 1.013 T Score Values are as follows: ----- L1: -1.6 ----- L2: -1.7 ----- L3: -1.4 ----- L4: -0.1 ----- L1-L4: -1.4 Z Score Values are as follows: ----- L1: -0.9 ----- L2: -1.0 ----- L3: -0.7 ----- L4: -0.4 ----- L1-L4: -0.7 Bone mineral density has: Increased 2.1% since study of: 07.08.2017 Bone mineral density about the R hip (g/cm2): 0.948 Bone mineral density about the L hip (g/cm2): 0.940 T Score values are as follows: -----R Neck: -1.1 -----L Neck: -1.5 -----R Total: -0.5 -----L Total: -0.5 Z Score values are as follows: -----R Neck: -0.2 -----L Neck: -0.6 -----R Total: 0.1 -----L Total: 0.0 Bone mineral density has: Decreased -4.3% since study of: 07.08.2017 FRAX%s: The graph provided illustrates a 15.8% chance for a major osteoporotic fx and a 0.7% chance f or the hips probability for fx in 10 years time. IMPRESSION: Normal (Values between +1 and -1 indicate normal bone mass). Consider repeating this study in 5 year s or sooner if there is some new clinical indication. NOTE: T-SCORE=SD OF THE YOUNG ADULT MEAN.
== END | disposition home or self-care (01) ==
LOC: RADMAMWWP 06:57
PROVIDERS: ATTEND Family Medicine
DX: N60.01 Solitary cyst of right breast (principal); M85.89 Other specified disorders of bone density and structure, multiple sites; R92.331 Mammographic heterogeneous density, right breast; E55.9 Vitamin D deficiency, unspecified; E21.3 Hyperparathyroidism, unspecified; Z78.0 Asymptomatic menopausal state
CPT/HCPCS: 77062; 77066; 77080

== ENCOUNTER → 2024-09-01 | Outpatient (CLI) | payer MEDICAID ==
--- NOTE | 2024-09-01 10:39 | MM ---
Reason for Exam: Screening (asymptomatic). Last mammogram was performed 1 year(s) and 2 month(s) ago. Patient History: Menarche at age 15. Patient has no children. Postmenopausal. Currently using Estrogen, for 1 year. Currently using Progesterone, for 1 year. Benign Cyst Aspiration on the right side. Risk Values: Rut 5 year model risk: 1.7%. NCI Lifetime model risk: 7.7%. Prior Study Comparison: 07/08/2017 Bilateral Screening Mammogram, [facility]. 05/18/2022 Bilateral MG 3D diag mammo w/cad RE, [facility]. 07/12/2023 Bilateral MG 3D diag mammo w/cad RE, [facility]. Tissue Density: The breasts are extremely dense, which lowers the sensitivity of mammography. Findings: Analyzed By CAD. There is no suspicious group of microcalcifications or new suspicious mass in either breast. Overall Assessment: Negative, BI-RAD 1 Management: Screening Mammogram of both breasts in 1 year. . Patient should continue monthly self-breast exams. A clinical breast exam by your physician is recommended on an annual basis. This exam should not preclude additional follow-up of suspicious palpable abnormalities. Note on Rut scores and lifetime risk: 1. A Rut score greater than 3% is considered moderate risk. If this is the case, consider specialist referral to assess eligibility for a risk reducing agent. 2. If overall lifetime risk for the development of breast cancer is 20% or higher, the patient may qualify for future screening with alternating mammogram and breast MRI. [facility], , 09/01/2024 10:36 AM. Electronically signed and approved by: Alejandro Loya M.D. Radiologis
== END | disposition home or self-care (01) ==
LOC: RADMAMWWP 09:45
PROVIDERS: ATTEND Family Medicine
DX: Z12.31 Encounter for screening mammogram for malignant neoplasm of breast (principal); R92.343 Mammographic extreme density, bilateral breasts; Z78.0 Asymptomatic menopausal state
CPT/HCPCS: 77063; 77067

== ENCOUNTER → 2024-12-29 | Outpatient (CLI) | payer MEDICAID ==
--- NOTE | 2024-12-30 22:32 | MR ---
EXAMINATION TYPE: MR tspine/lspine wo con DATE OF EXAM: 12/29/2024 4:41 PM COMPARISON: Planes are. CLINICAL INDICATION: Female, 64 years old with history of M62.81 MUSCLE WEAKNESS (GENERALIZED) M54.50 M54.6; PHH, Mid and low back pain into Left thigh, Left leg numbness x4-6 months TECHNIQUE: Multi planar, multi sequence imaging was performed utilizing: T1-weighted, T2-weighted, a nd turbo inversion recovery imaging of the thoracic and lumbar spine. IV Contrast: mL (None, if empty) FINDINGS: Alignment: The thoracic and lumbar vertebral bodies have preserved heights and alignment. Cord: The conus medullaris and the distal spinal cord appear unremarkable with regards to their signa l intensity and morphology. Prominent central canal extending from T4 to the cauda equina T12/L1 harvey suring less than 1 mm Bones/Discs: Minimal degeneration changes throughout the spine with osteophyte formation and facet marycruz int arthropathy. Intervertebral disc signal is maintained. No abnormal inversion recovery signal to s uggest bony edema. THORACIC: No evidence significant spinal canal or neural foraminal stenosis. Spinal cord is within no rmal limits. LUMBAR: T12-L1: No evidence of significant spinal canal stenosis or neural foraminal stenosis. L1-L2: No evidence of significant spinal canal stenosis or neural foraminal stenosis. L2-L3: No evidence of significant spinal canal stenosis or neural foraminal stenosis. L3-L4: No evidence of significant spinal canal stenosis or neural foraminal stenosis. L4-L5: No evidence of significant spinal canal stenosis or neural foraminal stenosis. L5-S1: The disc has a rounded posterior morphology without significant spinal canal stenosis. Facet j oint arthropathy with mild bilateral neural foraminal stenosis. Other findings: None. IMPRESSION: 1. No definitive evidence of disc herniation or significant spinal canal stenosis. 2. Mild disc degeneration with associated osteoarthritic changes. 3. 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 [facility], , 12/30/2024 10:30 PM
== END | disposition home or self-care (01) ==
LOC: RADMRIMAIN 15:30
PROVIDERS: ATTEND Orthopaedic Surgery
DX: M51.35 Other intervertebral disc degeneration, thoracolumbar region (principal); M47.817 Spondylosis without myelopathy or radiculopathy, lumbosacral region; Q04.6 Congenital cerebral cysts; Q06.4 Hydromyelia
CPT/HCPCS: 72146; 72148